=== PATIENT | male | born 1950 | race Caucasian/White ===

== ENCOUNTER 2016-08-06 03:16 | Emergency (ER) | payer MEDICARE, OTHER ==
[~2016-08-06] VITALS: Ht 172.7 cm; Wt 105.0 kg
[~2016-08-06 03:16] MED LIST: AMLO5TAB2 PO; FLUO1TAB3 PO; FLUT50SP EACH NARE; GLIM2TAB PO; LIPI80TA PO; LISI-519 PO; ZOLP10TA3 PO
[2016-08-06 03:18] VITALS: BP 130/70; PULSE 78; RESP 18; TEMP 97.7; O2SAT 97
--- NOTE | 2016-08-06 03:54 | PD ---
HPI Chief Complaint: Hip Injury Time Seen by Provider: 03:50 Travel History International Travel<30 days: No Contact w/Intl Traveler<30days: No Traveled to known affect area: No History of Present Illness HPI 65-year-old white male presents to emergency department accompanied by his for evaluation of right hip pain. He's been having pain in his right hip now for over 2 months. He was seen by his doctor advised to take NSAIDs and restriction for Lortab. He states that the pain is gotten significantly worse over the last week or so. He was supposed to have gotten a prescription for a outpatient x-ray but had not gotten one yet. He denies any trauma. He states the pain is worse when he bends and moves. He cannot take comfortable this evening which brought him in tonight. He denies any fever or chills. No acute numbness or tingling. No abdominal pain. No urinary symptoms. PFSH Past Medical History Narrative Medical CLL, hypertension, diabetes, coronary artery disease, hypercholesterolemia Blood Disorders: No Depression: Yes Cancer: Yes ( LEUKEMIA) Cardiac Catheterization: Yes (1 STENT PLACED X "A COUPLE OF YEARS AGO") Cardiovascular Problems: Yes High Cholesterol: Yes Chemotherapy: Yes Diabetes: Yes Patient Takes Glucophage: Yes Diminished Hearing: Yes (BILAT HEARING AIDS) Endocrine: No Gastrointestinal Disorders: No GERD: No Genitourinary: No Hepatitis: No Hiatal Hernia: No Heparin Induced Thrombocytopen: No Hypertension: No Immune Disorder: No Implanted Vascular Access Dvce: Yes Musculoskeletal: Yes (CHRONIC RIGHT SHOULDER AND NECK PAIN) Neurologic: No Psychiatric: No Reproductive: No Respiratory: Yes (SLEEP APNEA DOES NOT HAVE CPAP YET) Radiation Therapy: No Thyroid Disease: No Tetanus Vaccination: Unknown Influenza Vaccination: Yes Past Surgical History AICD: No Arteriovenous Shunt: No Coronary Stent: Yes Insulin Pump: No Joint Replacement: No Oral Surgery: Yes (TOOTH EXTRACTIONS) Pacemaker: No Social History Alcohol Use: Yes Tobacco Use: Yes Substance Use: No Allergies-Medications (Allergen,Severity, Reaction): Coded Allergies: No Known Allergies (Verified , 08/06/16) Reported Meds & Prescriptions Reported Meds & Active Scripts Active Mobic (Meloxicam) 15 Mg Tab 15 Mg PO DAILY Reported Lipitor (Atorvastatin Calcium) 80 Mg Tab 80 Mg PO HS Fluticasone Nasal [place] 50 Mcg/Act Naspr 50 Mcg EACH NARE HS 50 mcg/spray Zolpidem (Zolpidem Tartrate) 10 Mg Tab 10 Mg PO HS PRN Amlodipine (Amlodipine Besylate) 5 Mg Tab 5 Mg PO DAILY Glimepiride 2 Mg Tab 2 Mg PO BID ACHS Lisinopril 5 Mg Tab 5 Mg PO DAILY Fluoxetine (Fluoxetine HCl) 20 Mg Tab 20 Mg PO DAILY Review of Systems Except as stated in HPI: all other systems reviewed are Neg Physical Exam Narrative GENERAL: This is a well-nourished, well-developed patient, in no apparent distress. SKIN: No rashes, ecchymoses or lesions. Warm and dry. HEAD: Atraumatic. Normocephalic. EYES: PERRL, EOMI, no discharge or injection. No scleral icterus. EARS: Clear NOSE: Nasal turbinates appear normal. THROAT: Mucosa pink and moist. Airway patent. NECK: Trachea midline. supple, moves head freely. LUNGS: Clear to auscultation. CV: Regular in rhythm. ABDOMEN: Soft nontender. Back: No central bony tenderness to palpation of the dorsal lumbar spine. No gross spasm. EXT: No clubbing cyanosis or edema. Patient complains of pain in his right SI joint and right buttocks. He has decreased range of motion with hip flexion as well as internal/external rotation due to pain. Negative straight leg raise. No pain in the knee, ankle or foot. He is intact gross sensation with good distal pulses. Data Data Last Documented VS Vital Signs Date Time Temp Pulse Resp B/P Pulse Ox O2 Delivery O2 Flow Rate FiO2 08/06/16 03:23 16 08/06/16 03:18 97.7 78 130/70 97 Room Air Orders Hip, Uni(Ap&Lat) W Ap Pelvis (08/06/16 03:29) Morphine Inj (Morphine Inj) (08/06/16 04:45) MDM Medical Decision Making Medical Screen Exam Complete: Yes Emergency Medical Condition: Yes Medical Record Reviewed: Yes Interpretation(s) Right hip with one view pelvis: Negative for acute fracture. Mild degenerative changes. No obvious lytic lesions. Differential Diagnosis Differential diagnosis: Arthritis, sciatica, metastatic disease Narrative Course Patient is given morphine 8 mg IM. X-ray is unremarkable for any fracture or lytic lesion. He has some mild degenerative changes. He is encouraged to follow-up with his doctor to have a referral to orthopedics. This is right hip pain Diagnosis Primary Impression: Right hip pain Patient Instructions: General Instructions Additional Instructions: Rest. Stop Motrin. Start meloxicam. Follow-up with your doctor this week for recheck. Return to the ER for emergencies. Med/Other Pt SpecificInfo: Prescription(s) given Scripts Meloxicam (Mobic)15 Mg Tab15 Mg PO DAILY #30 TAB Prov:Manjeet Patterson MD 08/06/16 Disposition: 01 DISCHARGE HOME Condition: Stable Glenn Robertson August 06, 2016 03:54
[2016-08-06] MEDS ORDERED: MOBI15TA PO (04:42)
[2016-08-06] MEDS ORDERED: MORPHINE SULFATE 8 MG/ML INJ IM ONE (04:45)
--- NOTE | 2016-08-06 08:26 | RADRPT ---
EXAM DATE/TIME: 08/06/2016 03:58 [facility] COMPARISON: No previous studies available for comparison. INDICATIONS : Hip pain. MEDICAL HISTORY : None. SURGICAL HISTORY : None. ENCOUNTER: Initial ACUITY: 1 day PAIN SCORE: 5/10 LOCATION: Right hip FINDINGS: Examination of the right hip was performed with AP Pelvis. The primary and secondary trabecular jose emilio of the femoral neck is intact. The hip joint is of normal width without significant sclerosis or bony hypertrophy. The acetabulum is grossly intact. CONCLUSION: Unremarkable examination of the right hip. Dean Mahajan MD on August 06, 2016 at 4:17 Board Certified Radiologist. This report was verified electronically.
== END 2016-08-06 04:57 | disposition home or self-care (01) ==
LOC: NEPD 03:16
DX: M25.551 Pain in right hip (principal)
CPT/HCPCS: 73502; 99283